=== PATIENT | female | born 1970 | race Caucasian/White ===

== ENCOUNTER 2018-04-29 16:54 | Emergency (ER) | payer OTHER ==
[2018-04-29 17:15] VITALS: BP 116/73
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
== END 2018-04-29 18:16 | disposition home or self-care (01) ==
LOC: ED 16:54
DX: M62.830 Muscle spasm of back (principal); V43.52XA Car driver injured in collision with other type car in traffic accident, initial encounter
CPT/HCPCS: 99282; 99283